=== PATIENT | male | born 1970 | race Two or more races ===

== ENCOUNTER 2024-11-19 10:40 | Emergency (ER) | payer OTHER, SELFPAY ==
--- NOTE | ~2024-11-19 | CT_ITS ---
Examination: CT left hip without contrast. TECHNIQUE: Axial CT was performed through the left hand without contrast. Coronal and sagittal reformatted images were generated from the original axial data set. ALARA: The examination used one or more of the following radiation dose reduction techniques: Automated exposure control, iterative reconstruction, and/or adjustment of mA and/or KV. INDICATION: Multiple fractures. Comparison with an x-ray performed earlier on same day. FINDINGS: There is a 2 x 6 mm cortical fragment at the medial base of the first metacarpal possibly representing an avulsion fracture could be a chronic finding. 2 mm corticated bony fragment palmar to the IP joint of thumb is probably chronic avulsion fracture is not ruled out. There is an oblique fracture involving the proximal metaphysis of the third proximal phalanx extending to the dorsal margin of the articular surface. There is a transverse fracture across the proximal diaphysis of the fourth proximal phalanx. There is a fracture involving the distal tip of the tuft of the fifth digit. There is diffuse soft tissue gas tracking along the flexor tendons of the second - fifth rays. There is soft tissue gas within the fractured fourth proximal phalanx. There is soft tissue gas dorsal to the base of the third and fourth digits. CT/CT hand LT wo IV con IMPRESSION: Again seen are multiple fractures. There is a fracture involving the base of the third proximal phalanx extending to the dorsal margin of the joint. There is gas within the medullary space secondary to soft tissue injury. Again seen is a transverse fracture proximal third diaphysis of the fourth proximal phalanx. Again seen is a tuft fracture involving the fifth digit. Small cortical fragments are present, one at the medial base of the first metacarpal, and 1 volar to the IP joint of thumb. This could represent small avulsion fractures, but could represent chronic calcific densities. There is deep soft tissue gas, as described above, consistent with a soft tissue injury that is not clearly evident on the images. Electronically signed by: Kelechi Pham MD 11/19/2024 01:41 PM EDT
--- NOTE | ~2024-11-19 | XR_ITS ---
EXAMINATION: XR HAND, LEFT CLINICAL INFORMATION: trauma COMPARISON: None available. TECHNIQUE: PA, lateral, and oblique views of the left hand. FINDINGS: There is an oblique fracture involving the base of the third proximal phalanx. There is a transverse mostly fracture involving the middle diaphysis of the fourth proximal phalanx. There is fracture involving the tuft of the fifth digit. There is marginal osteophyte involving distal ulna at the distal radioulnar joint. XR/XR hand LT min 3V IMPRESSION: There is a fracture of the base of the third proximal phalanx (possibly intra-articular), middle diaphysis of the fourth proximal phalanx, and tuft of the fifth digit. Electronically signed by: Kelechi Pham MD 11/19/2024 11:32 AM EDT
[2024-11-19 10:54] VITALS: BP 99/56; PULSE 61; RESP 20; TEMP 36.1; O2SAT 94; BMI 31.4
--- NOTE | 2024-11-19 10:54 | ED.GENADULT ---
HPI - General Adult General Chief complaint: Extremity Injury, Upper Stated complaint: hand inj, crushed hand with truck lift Time Seen by Provider: 11/19/24 12:15 Source: patient Mode of arrival: ambulatory Limitations: no limitations History of Present Illness ED Provider: ALYSSA Lau HPI narrative: This is a 54-year-old Belarusian-speaking male presenting to the emergency department with complaints of left hand/finger pain ongoing for the past hour to. Patient reports he was at work and he crushed his hand under a truck lift. Since then he has been having pain, swelling and discomfort with range of motion to all fingers. He tells me the truck lift was heavy. He reports significant discomfort. Denies numbness, tingling or any other injuries. This was a work-related injury Onset (ago): hour(s) (1.5) Related Data Previous Rx's ?Medication ?Instructions ?Recorded acetaminophen 500 mg capsule 1,000 mg (2 x 500 mg) PO Q8H PRN 11/19/24 pain #30 caps amoxicillin 875 mg-potassium 1 tab PO BID 7 days #14 tabs 11/19/24 clavulanate 125 mg tablet doxycycline hyclate 100 mg capsule 100 mg PO BID 10 days #20 caps 11/19/24 ketorolac 10 mg tablet 10 mg PO TID PRN pain 5 days #15 11/19/24 tabs Allergies Allergy/AdvReac Type Severity Reaction Status Date / Time No Known Allergies Allergy Verified 11/19/24 10:57 Review of Systems Review of Systems: Yes all other systems are reviewed and are negative PMFSH Past Medical History Attestation statement: The following information was validated with the patient. Source: old records reviewed and nursing notes reviewed Social History Social History Advance Directives: No Advance Directives Information Provided: Yes Physical Exam ED Exam Exam: Appearance: Alert.? Oriented X3.? No acute distress.? Head: Normocephalic, atraumatic, no step-offs or deformities Eyes: Pupils equal, round and reactive to light.? Neck: Normal inspection.? Neck supple.? CVS: Normal heart rate and rhythm.? Pulses normal.? Respiratory: No respiratory distress.? Breath sounds normal.? Abdomen: Soft and nontender.? Skin: Skin warm and dry.? Normal skin color.? Normal skin turgor.?+ L hand w/ significant edema, difficulty with movement of all fingers except the thumb. Capillary refill less than 2 seconds. Normal distal sensation. He has tenderness to palpation throughout the entire dorsal aspect of hand however worse over the base of the 3rd phalanx and proximal 4th phalanx. Small superficial wounds and a deeper laceration .5 cm to the chun Extremities: No lower extremity edema.? No calf ttp. 5/5 strength to bilateral upper and lower extremities Neuro: Oriented X 3.? No motor deficit.? No sensory deficit. CN 2-12 intact Vital Signs: Vital Signs - 24 hr 11/19/24 10:54 11/19/24 15:38 Temperature 96.9 F Pulse Rate 61 56 Respiratory Rate 20 18 Blood Pressure 99/56 L 117/75 Pulse Oximetry 94 Oxygen Delivery Method Room Air BMI result Body Mass Index 31.4 vss Course Course Course Narrative: RME, this is a rapid medical exam performed by Fredy Fisher please refer to primary provider for complete H&P- 54-year-old male presents for evaluation of trauma to his left hand. He reports his hand was caught at work in a ?truck lift. ? Plan for x-rays of the left hand and wrist. He has small superficial wounds and a deeper laceration to the palmar surface of the fifth finger. He was medicated with ibuprofen and Tylenol Reevaluation(s) Reevaluation #1: X-ray of the left hand with fracture of the base of the 3rd proximal phalanx possibly intra-articular, middle diaphysis of 4th proximal phalanx and tuft of the 5th digit. Time: 13:01 Reevaluation #2: Refusing boostrix Time: 13:01 Reevaluation #3: Patient evaluated by Dimitris from orthopedics. Will have him follow up outpatient. Will place a mittens splint. He will go home on oral antibiotics. Educated patient on diagnosis and treatment plan, answered all question, patient verbalizes understanding. At this time patient will be discharged home, advised to return with new or worsening symptoms. Educated on worrisome signs and symptoms and when to return. At this time I feel comfortable discharge home. Time: 14:08 Additional Reevaluation(s): Patient was splinted and underlying the splint there nonadhesive pads with bacitracin. After splint application patient's neurovascular status intact. Able to wiggle fingers capillary refill less than 2 seconds. Two 3-0 sutures were placed to left 5th digit palmar aspect. Tolerated procedure well. Verbal consent obtained. Educated patient on diagnosis and treatment plan, answered all question, patient verbalizes understanding. At this time patient will be discharged home, advised to return with new or worsening symptoms. Educated on worrisome signs and symptoms and when to return. At this time I feel comfortable discharge home. Medications Administered Discontinued Medications Generic Name Dose Route Start Last Admin Trade Name Gris PRN Reason Stop Dose Admin Acetaminophen 975 mg 11/19/24 10:54 11/19/24 11:01 Acetaminophen 325 Mg Tablet PO 11/19/24 10:55 975 mg ONCE ONE Administration Bacitracin 6 appl 11/19/24 15:24 11/19/24 15:28 Bacitracin Oint 0.9 Gm Packet TOPICAL 11/19/24 15:25 6 appl ONCE ONE Administration Protocol Diphtheria/Tetanus/Acell Pertussis 0.5 ml 11/19/24 12:21 11/19/24 12:38 Diphth,Pertus(Acell),Tet Adult 0.5 Ml Syringe IM 11/19/24 12:22 Not Given .ONCE ONE Ibuprofen 600 mg 11/19/24 10:54 11/19/24 11:02 Ibuprofen 600 Mg Tablet PO 11/19/24 10:55 600 mg ONCE ONE Administration Ketorolac Tromethamine 30 mg 11/19/24 14:09 11/19/24 14:31 Ketorolac Tromethamine 30 Mg/Ml Vial IM 11/19/24 14:10 30 mg ONCE ONE Administration Lidocaine HCl 5 ml 11/19/24 14:08 11/19/24 14:32 Lidocaine Hcl 2 % Mpf 5 Ml Vial SUBCUT 11/19/24 14:09 Not Given ONCE ONE Morphine Sulfate 4 mg 11/19/24 12:15 11/19/24 12:39 Morphine Sulfate 4 Mg/Ml Cartridge IVPUSH 11/19/24 12:16 4 mg ONCE ONE Administration Protocol Procedures Procedure Narrative Procedure Narrative: I applied a short Mitten splint to the left upper extremity, patient tolerated procedure well. Underlying the splint are nonadhesive pads with bacitracin. Neurovascular status intact after application. If patient able to go fingers capillary refill less than 2 seconds. Laceration Laceration 1: Site: hand (L5 digit) Side (If applicable): left Size (cm): 0.5 Description: linear Depth: simple, single layer Local Anesthetic: lidocaine 1% Amount of anesthesia used (mL): 3 Pre-repair: wound explored, irrigated extensively, deep structures intact and extensive debridement Size (cm): 3-0 Number of sutures: 2 Technique: simple, interrupted Medical Decision Making Medical Decision Making [facility] Narrative: 1217 This is a 54-year-old male who presents with work-related injury he crushed his left hand under a truck lift. Physical exam left hand dorsal aspect with significant edema, difficulty with movement of all fingers except the thumb. Capillary refill less than 2 seconds. Normal distal sensation. He has tenderness to palpation throughout the entire dorsal aspect of hand however worse over the base of the 3rd phalanx and proximal 4th phalanx. Small superficial wounds and a deeper laceration .5 cm to the palmar surface of the fifth finger History and physical exam concerning for fracture/dislocation. I am concerned for possible crush injury and later complication of compartment syndrome due to the location. At this time extremities appear well perfused. No signs of acute threat to limb. Plan imaging and pain control Differential Diagnosis Differential Diagnoses: The differential diagnosis associated with the presentation includes (History and physical exam concerning for fracture/dislocation. I am concerned for possible crush injury and later complication of compartment syndrome due to the location. At this time extremities appear well perfused. No signs of acute threat to limb.) Admission/Observation Consideration of admission/observation: Escalation of care including admission/observation considered Independent Interpretation I performed an independent interpretation of an: Plain X-Ray (XR/XR hand LT min 3V IMPRESSION: There is a fracture of the base of the third proximal phalanx (possibly intra-articular), middle diaphysis of the fourth proximal phalanx, and tuft of the fifth digit.) Radiology Impression Discussion of test interpretation with radiology: I have reviewed the radiologist's reading. Prescription Management I considered prescription management with: Pain Medication Critical Care Time Critical Care Time Critical Care Time: Yes Total Critical Care Time: 35 Attestation: I attest to this time spent taking care of the patient, obtaining history, physical, reviewing labs, imaging, treatment of patients condition +/- specialist/hospitalist consult +/- procedure Discharge Plan Discharge Clinical Impression: Multiple fractures of hand bones, Crush injury Patient Disposition: Home, Self-Care Instructions: Hand Fracture (ED) Additional Instructions: Take your medications as prescribed. If you were prescribed antibiotics today, it is important that you take your medication to their entirety, do not skip any doses, do not finish them early. Follow-up with your primary care provider this week. Return to the emergency department with new or worsening symptoms. Such as fevers, chills, chest pain, shortness of breath, nausea, vomiting, dizziness, headache, vision changes, lethargy In case of emergency call 911 Toradol has been sent to your pharmacy, you tolerated this well in the department. Please take this as prescribed do not take this with ibuprofen, or other NSAIDs, do not mix this with alcohol. Side effects of this medication including increased risk for bleeding and possible kidney injury. You can also take Tylenol with Toradol. Please do not take any other NSAIDs or ibuprofen with this. Elevate, ICE. Staple removal in 7- 10 days You need to see an orthopedic doctor or hand surgeon within a week. Keep splint clean, dry and intact CT/CT hand LT wo IV con IMPRESSION: Again seen are multiple fractures. There is a fracture involving the base of the third proximal phalanx extending to the dorsal margin of the joint. There is gas within the medullary space secondary to soft tissue injury. Again seen is a transverse fracture proximal third diaphysis of the fourth proximal phalanx. Again seen is a tuft fracture involving the fifth digit. Small cortical fragments are present, one at the medial base of the first metacarpal, and 1 volar to the IP joint of thumb. This could represent small avulsion fractures, but could represent chronic calcific densities. There is deep soft tissue gas, as described above, consistent with a soft tissue injury that is not clearly evident on the images. XR/XR hand LT min 3V IMPRESSION: There is a fracture of the base of the third proximal phalanx (possibly intra-articular), middle diaphysis of the fourth proximal phalanx, and tuft of the fifth digit. Prescriptions: New doxycycline hyclate 100 mg capsule 100 mg PO BID 10 Days Qty: 20 0RF amoxicillin-pot clavulanate 875-125 mg tablet 1 tab PO BID 7 Days Qty: 14 0RF ketorolac 10 mg tablet 10 mg PO TID PRN (Reason: pain) 5 Days Qty: 15 0RF Rx Instructions: Tolerated IM or IV in department acetaminophen 500 mg capsule 1,000 mg PO Q8H PRN (Reason: pain) Qty: 30 0RF Referrals: [facility] [place] Orthopedic Surgeons [Provider Group, Hand Surgery] Clinical Impression: Crush injury; Multiple fractures of hand bones Stand Alone Forms: Work/School Release Print Language: Belarusian
--- NOTE | 2024-11-19 12:47 | PC.NURSE ---
20gIV placed in the right AC - medication administered per provider order. pt refusing tdap administration d/t no specific reason. pt educated on importance but still refusing. provider notified/aware. pending CT results at this time.
--- OUTSIDE RECORDS SUMMARY | 2024-11-19 12:58 | XMS_ITS | Clinical Summary ---
Author Organization [facility] [address] [place] [id number] Care Team Providers Care Natural Resources Faculty Member Name Role Phone Patient, No Pcp Per MD Primary Care Provider Radha vailable Allergies No known active allergies Medications No known medications Social History Tobacco Use Types Packs/Day Years Used Date Smoking Tobacco: Never Smokeless Tobacco: Never Tobacco Cessation:Counseling Given: Not Answered Alcohol Use Standard Drinks/Week Comments Never 0 (1 standard drink = 0.6 oz pur e alcohol) Sex and Gender Information Value Date Recorded Sex Assigned at Male 11/11/2022 5:50 PM EDT Legal Sex Male 5:08 PM EDT Gender Identity Male 11/11/2022 5:50 PM EDT Sexual Orientation Straight 11/11/2022 5: 50 PM EDT Last Filed Vital Signs Vital Sign Reading Time Taken Comments Blood Pressure 135/79 11/11/2022 6:00 PM EDT Pulse 72 11/11/2022 6:00 PM EDT Temperature - - Respiratory Rate 18 11/11/2022 5:18 PM EDT Oxygen Saturation 97% 11/11/2022 6:00 PM EDT Inhaled Oxygen Concentration - - Weight 103.4 kg (228 lb) 11/11/2022 5:18 PM EDT Height 180.3 cm (5' 11 ) 11/11/2022 5:18 PM EDT Body Mass Index 31.8 11/11/2022 5:18 PM EDT Plan of Treatment Health Maintenance Due Date Last Done Comments HIV Screening 1970 Preventative/Well Visit 1972 [facility] ANNUAL DEPRESSION SCREENING 1982 [facility] BLOOD PRESSURE 140/90 OR UNDER 1988 [facility] BMI DOCUMENTED 1988 [facility] TOBACCO CESSATION COUNSELING 1988 HEPATITIS C SCREENING 1988 Hepatitis B Infection Screening 1988 Hepatitis B Vaccines (1 of 3 - 19+ 3-dose series) 08/1989 [facility] ACCESS TO PREVENTIVE/AMBULATORY VISIT 991 COLOGUARD 08/07/2015 COLONOSCOPY 08/07/2015 COLORECTAL CANCER SCREENING 08/07/2015 FIT (Fecal Immunochemical Test) 08/07/2015 FOBT 08/07/2015 SIGMOIDOSCOPY 08/07/2015 [facility] COLON FOBT 2020 [facility] COLONOGRAPHY (CT) 2020 [facility] COLONOSCOPY 2020 [facility] FIT-DNA TEST 2020 [facility] FLEX SIGMOIDOSCOPY 2020 Colon Cancer Screenings 2020 PNEUMOCOCCAL VACCINE AGE 50+ (1 of 1 - PCV) 2020 Zoster Vaccines (Shingles) (1 of 2) 2020 INFLUENZA VACCINE 10/01/2024 COVID VACCINE ( - season) 2024 Care Teams Natural Resources Faculty Member Relationship Specialty Start Date End Date Patient, No Pcp MD Reji PCP - General General Medicine 11/11/22
--- NOTE | 2024-11-19 15:19 | PC.NURSE ---
pt able to tolerate soaking left hand in water/iodine per provider order. suture kit utilized by provider - pt tolerated intervention well. pending splint to be placed. plan of care ongoing.
[2024-11-19 15:38] VITALS: BP 117/75; PULSE 56; RESP 18
[2024-11-19 16:05] VITALS: BP 117/75; PULSE 56; RESP 18; TEMP 36.6; O2SAT 97
== END 2024-11-19 16:16 | disposition home or self-care (01) ==
PROVIDERS: Emergency Provider Emergency Medicine
DX: S62.92XA Unspecified fracture of left hand, initial encounter for closed fracture (principal); S61.412A Laceration without foreign body of left hand, initial encounter; M79.642 Pain in left hand; W24.0XXA Contact with lifting devices, not elsewhere classified, initial encounter; Y93.9 Activity, unspecified; Y92.9 Unspecified place or not applicable; Y99.0 Civilian activity done for income or pay
CPT/HCPCS: 12001; 29125; 73130; 73200; 96372; 96374; 99284; J1885; J2270

== ENCOUNTER → 2024-11-19 10:54 | Outpatient (BNV) | payer SELFPAY | PROVIDERS: Visit Provider Radiology Diagnostic Radiology | DX: S62.611A Displaced fracture of proximal phalanx of left index finger, initial encounter for closed fracture (principal); S62.617A Displaced fracture of proximal phalanx of left little finger, initial encounter for closed fracture | CPT/HCPCS: 73130; 73200 ==